=== PATIENT | female | born 1995 | race Caucasian/White ===

== ENCOUNTER 2024-06-22 14:33 | Outpatient (AMB) | payer MEDICAID, SELFPAY ==
[2024-06-22 14:57] VITALS: BP 105/60; PULSE 82; RESP 16; TEMP 36.3; O2SAT 96; BMI 40.5
--- NOTE | 2024-06-22 14:57 | AMB.OBINITIA ---
Vital Signs 06/22/24 14:57 Height 1.55 m Height Method Stated Weight 97.239 kg Weight Measurement Method Standing Scale BMI 40.5 BP 105/60 Blood Pressure Source Automatic Cuff Blood Pressure Location Left Upper Arm Position Sitting Respiration 16 Pulse 82 Pulse Source Monitor Temp 97.3 F Temp Source Oral Pulse Oximetry (%) 96 Oxygen Delivery Method Room Air Allergies/Home Meds Allergies & Medications Allergies No Known Allergies Allergy (Verified 07/21/24 09:13) Medication Reconciliation cephalexin 500 mg capsule 500 mg PO QID #28 caps 12/21/23 [Rx Confirmed 07/21/24] Intake Visit Data Collection New Patient or Established: Established Patient (seen at [facility] within 3 years) Reason for Visit:: - Transfer of care from [facility] - follow-up (34 weeks 1 day gestation) - So uncomfortable - Right-sided abdominal discomfort with activity Seen by Clinical Staff ONLY (RN/MA): No Light Cleaner Required: No Do You Feel Safe at Home: Yes Authorities Contacted: N/A PCP or OBGYN visit in last 3 months: No Hx Now: Yes Are you currently on any form of Control: No Last menstrual period: 11/15/23 Pain Present Currently: No Pain Scale Used: [employer]/Numerical Pain scale:: 0 Smoking Status Smoking Status: Former smoker Questionnaires Covid-19 Vaccine Questionnaire Has patient been vacinated for Covid-19 Have you been vacinated for Covid-19: No PHQ-9 PHQ-2 Over the last 2 weeks, how often have you been bothered by any of the following problems? 1. Little interest or pleasure in doing things: not at all 2. Feeling down, depressed, or hopeless: not at all Total score: 0 PHQ-9 3. Trouble falling or staying asleep, or sleeping too much: Not at all 4. Feeling tired or having little energy: Not at all 5. Poor appetite or overeating: Not at all 6. Feeling bad about yourself - or that you are a failure or have let yourself or your family down: Not at all 7. Trouble concentrating on things, such as reading the newspaper or watching television: Not at all 8. Moving or speaking so slowly that other people could have noticed? - Or the opposite - being so fidgety or restless that you have been moving around a lot more than usual: not at all 9. Thoughts that you would be better off or of hurting yourself in some way: Not at all Total score: 0 Source: Developed by Drs. Robert Urbano, Chapis Gant, Patrice Young and colleagues, with an educational katheryn from [employer]. Depression screen completed yes Social History Living Situation History Marital Status: Lives With: Family Housing: House Tobacco History Smoking Status: Former smoker Second Hand Smoke Exposure: Yes Alcohol History Alcohol Intake: Former Alcohol Intake Frequency: holidays/special occasions only Substance Use History Substance Use: THC 03/2017 Domestic Abuse History Do You Feel Safe at Home: Yes Past Medical History Past Medical History Have you ever been diagnosed with any of the following: Cardiology Problems Congestive Heart Failure: No Respiratory Problems Chronic Obstructive Pulmonary Disease (COPD): No Asthma: No Stomache/Intestinal Problems Hepatitis: No Colorectal Cancer: No Genital/Urinary Problems Renal Disease: No Prostate Cancer: No Reproductive Problems Breast Cancer: No Testicular Cancer: No Musculoskeletal Problems Bone Cancer: No Endocrine Problems Diabetes Mellitus Type 1: No Diabetes Mellitus Type 2: No Blood Problems Anemia: Yes Sickle Cell Disease: No Other Problems Hospitalization: Yes Down Syndrome: No Developmental Delay: No Shingles: No Falls: No Blood Transfusions: No Blood Transfusion Reaction: No Anesthesia Reactions: No Organ Transplant: No Chemotherapy: No Radiation Therapy: No Hyperbaric Therapy: No MRSA: No VRSA: No Vancomycin-Resistant Enterococci: No Human Immunodeficiency Virus (HIV): No Chicken Pox: No Measles: No Mumps: No Rubella (Spanish Measles): No Pertussis: No Clostridium Difficile: No Cervical Cancer: No Lung Cancer: No Ovarian Cancer: No History of Present Illness HPI Narrative - Lucia Osorio is a 28-year-old presenting for transfer of care at 34 weeks and 1 day gestation (based on TIAN of 08/07/2024). - Patient reports feeling so uncomfortable during . 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 - Confirms regular movement. - Reports adherence to vitamin regimen. No contractions/ LOF/VB, reports good FM No MAHER/VC/RUQ/Epig pain OB Initial Visit Menstrual History Menstrual reliability: approximate (month known) Flow: normal Menstrual regularity: regular Monthly: Yes Age at menarche: 11 On control pills at conception: No Date of positive home test: 12/20/23 OB History : 9 Para: 1 Hx # Pregnancies: 0 Hx Total # of Abortions (Spontaneous & Elective): 7 # of Living Children: 1 Delivery History 1st : Child's name: VINCENT date: 08/31/17 sex: male Gestational age at delivery (weeks): 42 Delivery type: vaginal History of depression before or after : No Infection History & Risk Evaluation History of STDs: chlamydia Genetic Screening & History Genetic Screening/Teratology Counseling - Includes patient, baby's father, or anyone in either family with: 1. Patient's age 35 years or older as of estimated date of delivery: No 2. Thalassemia (Slovenian, Spanish, Mediterranean, or Background); MCV less than 80: No 3. Neural Tube Defect (Meningomyelocele, Spina Bifida, or Anencephaly): No 4. Congenital Heart Defect: No 5. Down Syndrome: No 6. Dominic-Sachs (Ashkenazi Jehovah'S Witness, Cajun, Serbian Sri Lankan): No 7. Lamonte Disease (Ashkenazi Jehovah'S Witness): No 8. Familial Dysautonomia (Ashkenazi Jehovah'S Witness): No 9. Sickle Cell Disease or Trait (): No 10. Hemophilia or other blood disorders: No 11. Muscular Dystrophy: No 12. Cystic Fibrosis: No 13. Oxford's Chorea: No 14. Mental Retardation/Autism: No 15. Other inherited genetic or chromosomal disorder: No 16. Maternal Metabolic Disorder (EG,TYPE 1 Diabetes, PKU): No 17. Patient or baby's father had a child with defects not listed above: No 18. Recurrent loss or a stillbirth: No 19. Medications (including supplements, vitamins, herbs or otc drugs)/illicit/recreational drugs/alcohol since last menstrual period: No 20. Any other: No Infection History 1. Live with someone with TB or exposed to TB: No 3. Hepatitis B,C: No 4. History of STD: chlamydia Other (see comments) Source: [employer] OB Flowsheet OB Flowsheet Initial Weight: Not Recorded Date <del>?</del> EGA Weight Edema CTX Effacement BP Fundal ht Pres Dilation Effacement Station Visit Note Alb Glu FHR Mov 06/22/24 <del>?</del> 34w 1d 97.239 kg 105/60 Lucia Osorio, 28-year-old at 34w1d (TIAN 08/07/2024), presents for transfer of care. No CTX/LOF/VB. Reports good FM. No MAHER/VS, Epig/RUQ pain. Main concern: right-sided abdominal discomfort with activity, described as stretching sensation. Denies other complaints. On vitamins. FHR: 147 bpm (normal). Labs: Blood type A+, Ab screen neg, rubella non-immune. Chlamydia+ on 04/16/24, treated with azithromycin. Assessment & Plan: 34w1d IUP. Right-sided ligament pain with activity. Refer for [facility] at [facility] ([place]) within 1?2 weeks Follow-up in 1 week Review outside records/labs from [facility] For discomfort: recommend hydration, Tylenol, warm compress as needed Reviewed signs of labor and routine counseling 145 active 06/29/24 <del>?</del> 35w 1d 98.146 kg 101/66 No contractions/ LOF/VB, reports good FM No MAHER/VC/RUQ/Epig pain. Schedule follow-up appointment in one week. Perform group B strep screening at 36 weeks gestation via vaginal culture swab. Continue monitoring activity and heart rate. Prepare for potential antibiotic administration during labor if group B strep culture returns positive. 155 active 07/12/24 <del>?</del> 37w 0d 100.698 kg absent absent 105/67 36 cephalic No contractions. No leaking. No bleeding. Reports good movement. Fetus is active. Complains of pressure. Group B strep today. Reviewed labor precautions and kick counts. Return in a week OB check. Discussed weight gain. 156 active 07/21/24 <del>?</del> 38w 2d 100.414 kg 102/67 No CTX/LOF/VB. Reports good FM. No MAHER/VS, Epig/RUQ pain. Baby described as very active. No complaints. Prior delivery via induction at 42w. Currently considering spontaneous labor vs induction. Planning to stop work Friday. FHR: 138 bpm (normal). Assessment & Plan: at 38w. No complaints. Routine term care. Weekly visits until delivery Discuss induction vs expectant management at next visit Provide work note for maternity leave starting end of this week FMLA/disability form to reflect 6-week period, extendable to 6 months if needed Reinforce signs of labor: regular CTX, LOF, VB [employer] on rest, hydration, nutrition, and safe physical activity 155 active Results Objective Laboratory: Laboratory, Imaging, and Diagnostic Test Results - Blood group: A-positive - Antibody screen: Negative - Rubella: Non-immune - ACPR: Non-reactive - Hepatitis B: Negative - HIV: Negative - Gonorrhea: Negative - Chlamydia: Positive (04/16/2024) - One-hour glucose: Negative - Cystic fibrosis: Negative Assessment & Plan Diagnosis / Problem List (1) Encounter for care in third trimester of first : Status: Acute (2) Supervision of high risk , unspecified, third trimester: Status: Acute Plan Problem List - , single intrauterine - Chlamydia infection Assessment - Intrauterine at 34 weeks 1 day gestation (based on TIAN 08/07/2024) - with history of vaginal delivery - Blood type A positive, antibody screen negative - Rubella non-immune - Chlamydia positive on 04/16/2024, treated with azithromycin - Right-sided abdominal discomfort, likely due to uterine ligament stretching - heart rate 147 bpm, within normal limits Plan - Referral for high-level ultrasound in [place] with [facility] within 1-2 weeks - Follow-up appointment scheduled for next week - Clinician to review all labs and records from previous provider - For right-sided discomfort: advised to drink water, take Tylenol, or apply warm towel as needed Educated the patient on labor signs, including regular contractions, lower back pain, and changes in vaginal discharge. Advised avoiding heavy lifting and getting adequate rest. Instructed to contact the office immediately if any signs occur. Discussed the importance of a balanced diet rich in folic acid, iron, and calcium, and provided a list of recommended and to-avoid foods. Emphasized avoiding high-sugar foods to reduce gestational diabetes risk. Encouraged hydration and frequent, small meals for energy.. Office Procedures OB Clinic LOC & Office Proc's Nursing/Assessment Patient Status: Established Patient OB Clinic Nursing Assessment: Medication Reconciliation, Update PMH in EMR and Vital Signs OB Clinic Coordination of Care: Complex Care and Chronic Disease 1-5, Consent,records obtained, informed consent, Education Simp Pt/Fam, Lab and Imaging orders, Results/Orders obtained and Staff clarify orders Special Needs: Heart tones Established Patient Charge Established Patient Point Assignment: 135 Established Patient Point Charge: EP Level 4 (120-155)
== END 2024-06-22 15:04 | disposition home or self-care (01) ==
LOC: HODSOBC 14:33
PROVIDERS: PCP Family Medicine; Referring Provider Family Medicine; Supervising Provider Obstetrics & Gynecology; Visit Provider Obstetrics & Gynecology
DX: O09.93 Supervision of high risk pregnancy, unspecified, third trimester (principal); Z3A.34 34 weeks gestation of pregnancy
CPT/HCPCS: 99214; G0463

== ENCOUNTER 2024-06-29 13:03 | Outpatient (AMB) | payer MEDICAID, SELFPAY ==
[2024-06-29 13:11] VITALS: BP 101/66; PULSE 82; RESP 18; TEMP 36.2; O2SAT 99; BMI 40.8
--- NOTE | 2024-06-29 13:11 | OBCLNT_ITS ---
Vital Signs 06/29/24 13:11 Height 1.55 m Height Method Stated Weight 98.146 kg Weight Measurement Method Standing Scale BMI 40.8 BP 101/66 Blood Pressure Source Automatic Cuff Blood Pressure Location Left Upper Arm Position Sitting Respiration 18 Pulse 82 Pulse Source Monitor Temp 97.2 F Temp Source Oral Pulse Oximetry (%) 99 Oxygen Delivery Method Room Air Allergies/Home Meds Allergies & Medications Allergies No Known Allergies Allergy (Verified 06/29/24 13:12) Medication Reconciliation levofloxacin 500 mg tablet 500 mg PO Q24H #7 tabs 10/13/19 [Rx Confirmed 06/29/24] metronidazole 500 mg tablet 500 mg PO BID #14 tabs 10/13/19 [Rx Confirmed 06/29/24] diphenhydramine HCl 25 mg capsule (Benadryl) 25 mg PO Q8H PRN allergic symptoms #30 caps 05/01/23 [Rx Confirmed 06/29/24] cephalexin 500 mg capsule 500 mg PO QID #28 caps 12/21/23 [Rx Confirmed 06/29/24] Intake Visit Data Collection New Patient or Established: Established Patient (seen at [facility] within 3 years) 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 Seen by Clinical Staff ONLY (RN/MA): No Superintendent Drivers Required: No Do You Feel Safe at Home: Yes Authorities Contacted: N/A PCP or OBGYN visit in last 3 months: Yes Date of Last PCP or OBGYN visit: 06/22/24 Hx Now: Yes Are you currently on any form of Control: No Pain Present Currently: No Pain Scale Used: [employer]/Numerical Pain scale:: 0 Smoking Status Smoking Status: Former smoker Questionnaires Covid-19 Vaccine Questionnaire Has patient been vacinated for Covid-19 Have you been vacinated for Covid-19: Yes PHQ-9 PHQ-2 Over the last 2 weeks, how often have you been bothered by any of the following problems? 1. Little interest or pleasure in doing things: not at all 2. Feeling down, depressed, or hopeless: not at all Total score: 0 PHQ-9 3. Trouble falling or staying asleep, or sleeping too much: Not at all 4. Feeling tired or having little energy: Not at all 5. Poor appetite or overeating: Not at all 6. Feeling bad about yourself - or that you are a failure or have let yourself or your family down: Not at all 7. Trouble concentrating on things, such as reading the newspaper or watching television: Not at all 8. Moving or speaking so slowly that other people could have noticed? - Or the opposite - being so fidgety or restless that you have been moving around a lot more than usual: not at all 9. Thoughts that you would be better off or of hurting yourself in some way: Not at all Total score: 0 If you checked off any problems, how difficult have these problems made it for you to do your work, take care of things at home, or get along with other people?: not difficult at all Source: Developed by Drs. Robert Urbano, Chapis Gant, Patrice Young and colleagues, with an educational katheryn from [employer]). Depression screen completed yes Social History Living Situation History Marital Status: Lives With: Family Housing: House Tobacco History Smoking Status: Former smoker Second Hand Smoke Exposure: Yes Alcohol History Alcohol Intake: Former Alcohol Intake Frequency: holidays/special occasions only Substance Use History Substance Use: THC 03/2017 Domestic Abuse History Do You Feel Safe at Home: Yes Past Medical History Past Medical History Have you ever been diagnosed with any of the following: Cardiology Problems Congestive Heart Failure: No Respiratory Problems Chronic Obstructive Pulmonary Disease (COPD): No Asthma: No Stomache/Intestinal Problems Hepatitis: No Colorectal Cancer: No Genital/Urinary Problems Renal Disease: No Reproductive Problems Breast Cancer: No Musculoskeletal Problems Bone Cancer: No Endocrine Problems Diabetes Mellitus Type 1: No Diabetes Mellitus Type 2: No Blood Problems Anemia: Yes Sickle Cell Disease: No Other Problems Hospitalization: Yes Down Syndrome: No Developmental Delay: No Shingles: No Falls: No Blood Transfusions: No Blood Transfusion Reaction: No Anesthesia Reactions: No Organ Transplant: No Chemotherapy: No Radiation Therapy: No Hyperbaric Therapy: No MRSA: No VRSA: No Vancomycin-Resistant Enterococci: No Human Immunodeficiency Virus (HIV): No Chicken Pox: No Measles: No Mumps: No Rubella (Serbian Measles): No Pertussis: No Clostridium Difficile: No Cervical Cancer: No Lung Cancer: No Ovarian Cancer: No History of Present Illness HPI Nadia Lucia Osorio, a patient, presents for a routine check-up. She reports that the baby is active, which is noted as a positive sign indicating good oxygen and blood supply to the fetus. The patient denies experiencing any contractions at this time. Lucia appears to be in good overall health and spirits, stating she is good when asked how she is doing. She expresses surprise at still being , suggesting she may be nearing her due date. The patient does not report any specific complaints or concerns during this visit. Obstetric History - Current : - Gestational age: 35 weeks (based on mention of upcoming 36-week appointment) - movement: Active - heart rate: 135 bpm, noted as normal No contractions/ LOF/VB, reports good FM No MAHER/VC/RUQ/Epig pain Review of Systems Review of Systems Systems Reviewed: All systems reviewed, normal except as documented Visit TIAN Calculator Estimated Delivery Date Method Current WG Current Estimate 08/02/24 LMP (Certain) 36w 4d Initial Weight: Not Recorded Date -?-?-?-?-?-?-?-?-?-?-?-?- EGA Weight Edema CTX Effacement BP Fundal ht Pres Dilation Effacement Station V isit Note Alb Glu FHR Mov 06/29/24 -?-?-?-?-?-?-?-?-?-?-?-?- 35w 1d 98.146 kg 101/66 No c ontractions/ LOF/VB, reports good FM No MAHER/VC/RUQ/Epig pain. Schedule follow-up appointment in one we ek. Perform group B strep screening at 36 weeks gestation via vaginal culture swab. Continue monitoring activity and heart rate. Prepare for potential antibiotic administration during labor if group B strep culture returns positive. 155 active Assessment & Plan Diagnosis / Problem List (1) Supervision of high risk , unspecified, third trimester: Status: Acute Plan Problem List , single, intrauterine Assessment 36-week progressing normally. heart rate auscultated at 135 bpm, which is within normal range. Patient reports active movement, indicating adequate oxygenation and blood supply. No reported contractions. Routine Group B Streptococcus screening planned for next week at 36 weeks gestation. Plan Schedule follow-up appointment in one week. Perform group B strep screening at 36 weeks gestation via vaginal culture swab. Continue monitoring activity and heart rate. Prepare for potential antibiotic administration during labor if group B strep culture returns positive. Educated the patient on labor signs, including regular contractions, lower back pain, and changes in vaginal discharge. Advised avoiding heavy lifting and getting adequate rest. Instructed to contact the office immediately if any signs occur. Discussed the importance of a balanced diet rich in folic acid, iron, and calcium, and provided a list of recommended and to-avoid foods. Emphasized avoiding high-sugar foods to reduce gestational diabetes risk. Encouraged hydration and frequent, small meals for energy.. Office Procedures OB Clinic LOC & Office Proc's Nursing/Assessment Patient Status: Established Patient OB Clinic Nursing Assessment: BP Monitoring, Medication Reconciliation, Update PMH in EMR and Vital Signs OB Clinic Coordination of Care: Consent,records obtained, informed consent, Education Simp Pt/Fam, Lab and Imaging orders and Staff clarify orders Special Needs: Heart tones Established Patient Charge Established Patient Point Assignment: 120 Established Patient Point Charge: EP Level 4 (120-155)
== END 2024-06-29 13:26 | disposition home or self-care (01) ==
LOC: HODSOBC 13:03
PROVIDERS: PCP Family Medicine; Referring Provider Family Medicine; Supervising Provider Obstetrics & Gynecology; Visit Provider Obstetrics & Gynecology
DX: O09.93 Supervision of high risk pregnancy, unspecified, third trimester (principal); Z3A.35 35 weeks gestation of pregnancy; Z87.891 Personal history of nicotine dependence
CPT/HCPCS: 99214; G0463

== ENCOUNTER 2024-07-12 13:41 | Outpatient (AMB) | payer MEDICAID, SELFPAY ==
[2024-07-12 13:51] VITALS: BP 105/67; PULSE 85; RESP 14; TEMP 36.1; O2SAT 97; BMI 41.9
--- NOTE | 2024-07-12 13:51 | OBCLNT_ITS ---
Vital Signs 07/12/24 13:51 Height 1.55 m Height Method Stated Weight 100.698 kg Weight Measurement Method Standing Scale BMI 41.9 BP 105/67 Blood Pressure Source Automatic Cuff Blood Pressure Location Left Upper Arm Position Sitting Respiration 14 Pulse 85 Pulse Source Monitor Temp 96.9 F Temp Source Oral Pulse Oximetry (%) 97 Oxygen Delivery Method Room Air Allergies/Home Meds Allergies & Medications Allergies No Known Allergies Allergy (Verified 07/12/24 13:52) Medication Reconciliation cephalexin 500 mg capsule 500 mg PO QID #28 caps 12/21/23 [Rx Confirmed 06/29/24] Intake Visit Data Collection New Patient or Established: Established Patient (seen at [facility] within 3 years) Reason for Visit:: CARE Seen by Clinical Staff ONLY (RN/MA): No 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 1. Little interest or pleasure in doing things: not at all 2. Feeling down, depressed, or hopeless: not at all Total score: 0 PHQ-9 3. Trouble falling or staying asleep, or sleeping too much: Not at all 4. Feeling tired or having little energy: Not at all 5. Poor appetite or overeating: Not at all 6. Feeling bad about yourself - or that you are a failure or have let yourself or your family down: Not at all 7. Trouble concentrating on things, such as reading the newspaper or watching television: Not at all 8. Moving or speaking so slowly that other people could have noticed? - Or the opposite - being so fidgety or restless that you have been moving around a lot more than usual: not at all 9. Thoughts that you would be better off or of hurting yourself in some way: Not at all Total score: 0 Source: Developed by Drs. Robert Urbano, Chapis Gant, Patrice Young and colleagues, with an educational katheryn from [employer]. Depression screen completed yes Social History Living Situation History Lives With: Family Housing: House Tobacco History Smoking Status: Former smoker Second Hand Smoke Exposure: Yes Alcohol History Alcohol Intake: Former Alcohol Intake Frequency: holidays/special occasions only Substance Use History Substance Use: THC 03/2017 Domestic Abuse History Do You Feel Safe at Home: Yes Past Medical History Past Medical History Have you ever been diagnosed with any of the following: Neurological Problems Cerebrovascular Accident (CVA): No Transient Ischemic Attacks (TIA): No Dementia: No Alzheimer's Disease: No Parkinson's Disease: No Cardiology Problems Myocardial Infarction: No Cardiac Arrhythmia: No Atrial Fibrillation: No Angina: No Heart Murmur: No Coronary Artery Disease: No Atherosclerotic Heart Disease: No Congestive Heart Failure: No Respiratory Problems Chronic Obstructive Pulmonary Disease (COPD): No Asthma: No Cough: No Wheezing: No Chest Deformities: No Smoking: No Smoking Cessation Counseling: No Smoking Exposure: No Tobacco Use: No Clubbing: No Stomache/Intestinal Problems Liver Cancer: No Hepatitis: No Colorectal Cancer: No Genital/Urinary Problems Renal Disease: No Reproductive Problems Breast Cancer: No Musculoskeletal Problems Muscular Dystrophy: No Myasthenia Gravis: No Marfan's Syndrome: No Bone Cancer: No Head,Eye,Nose,Throat Problems Cataracts: No Glaucoma: No Blind: No Chronic Ear Infections: No Deafness: No Endocrine Problems Diabetes Mellitus Type 1: No Diabetes Mellitus Type 2: No Parathyroid Disease: No Systemic Lupus Erythematosus: No Blood Problems Anemia: Yes Sickle Cell Disease: No Other Problems Hospitalization: Yes Down Syndrome: No Developmental Delay: No Shingles: No Falls: No Blood Transfusions: No Blood Transfusion Reaction: No Anesthesia Reactions: No Organ Transplant: No Chemotherapy: No Radiation Therapy: No Hyperbaric Therapy: No MRSA: No VRSA: No Vancomycin-Resistant Enterococci: No Human Immunodeficiency Virus (HIV): No Chicken Pox: No Measles: No Mumps: No Rubella ([place] Measles): No Pertussis: No Clostridium Difficile: No Cervical Cancer: No Lung Cancer: No Ovarian Cancer: No Visit OB Visit Log OB Flowsheet Initial Weight: Not Recorded Date -?-?-?-?-?-?-?-?-?-?-?-?- EGA Weight Edema CTX Effacement BP Fundal ht Pres Dilation Effacement Station Visit Note Alb Glu FHR Mov 06/29/24 -?-?-?-?-?-?-?-?-?-?-?-?- 35w 1d 98.146 kg 101/66 No c ontractions/ LOF/VB, reports good FM No MAHER/VC/RUQ/Epig pain. Schedule follow-up appointment in one we ek. Perform group B strep screening at 36 weeks gestation via vaginal culture swab. Continue monitoring activity and heart rate. Prepare for potential antibiotic administration during labor if group B strep culture returns positive. 155 active 07/12/24 -?-?-?-?-?-?-?-?-?-?-?-?- 37w 0d 100.698 kg absent absent 105/67 36 cephalic No contractions. No leaking. No bleeding. Reports good movement. Fetus is active. Complains of pressure. Group B strep today. Reviewed labor precautions and kick counts. Return in a week OB check. Discussed weight gain. 156 active TIAN Calculator Estimated Delivery Date Method Current WG Current Estimate 08/02/24 LMP (Certain) 37w 0d Expected Delivery Route/Plan vaginal Assessment & Plan Diagnosis / Problem List (1) Encounter for care in third trimester of first : Status: Acute Plan GBS today. Discussed labor precautions and kick counts twice a day. Discussed weight gain. Avoid sugary foods. Walk 40 minutes a day. Increase fluids. OB check in a week Additional Plan Follow Up: 1 Week (obc) Office Procedures OB Clinic LOC & Office Proc's Nursing/Assessment Patient Status: Established Patient OB Clinic Nursing Assessment: Medication Reconciliation, Update PMH in EMR and Vital Signs OB Clinic Coordination of Care: Complex Care and Chronic Disease 1-5, Consent,records obtained, informed consent, Education Simp Pt/Fam and Staff clarify orders Special Needs: Heart tones Established Patient Charge Established Patient Point Assignment: 115 Established Patient Point Charge: EP Level 3 (80-115)
== END 2024-07-12 14:18 | disposition home or self-care (01) ==
LOC: HODSOBC 13:41
PROVIDERS: PCP Advanced Practice Midwife; Referring Provider Advanced Practice Midwife; Supervising Provider Advanced Practice Midwife; Visit Provider Advanced Practice Midwife
DX: Z34.03 Encounter for supervision of normal first pregnancy, third trimester (principal); Z3A.37 37 weeks gestation of pregnancy
CPT/HCPCS: 99213; G0463

== ENCOUNTER 2024-07-21 09:03 | Outpatient (AMB) | payer MEDICAID, SELFPAY ==
[2024-07-21 09:12] VITALS: BP 102/67; PULSE 71; RESP 14; TEMP 36.2; O2SAT 96; BMI 41.8
--- NOTE | 2024-07-21 09:12 | AMB.OBVISIT ---
Vital Signs 07/21/24 09:12 Height 1.55 m Height Method Stated Weight 100.414 kg Weight Measurement Method Standing Scale BMI 41.8 BP 102/67 Blood Pressure Source Automatic Cuff Blood Pressure Location Left Upper Arm Position Sitting Respiration 14 Pulse 71 Pulse Source Monitor Temp 97.1 F Temp Source Oral Pulse Oximetry (%) 96 Oxygen Delivery Method Room Air Allergies/Home Meds Allergies & Medications Allergies No Known Allergies Allergy (Verified 07/21/24 09:13) Medication Reconciliation cephalexin 500 mg capsule 500 mg PO QID #28 caps 12/21/23 [Rx Confirmed 07/21/24] Intake Visit Data Collection New Patient or Established: Established Patient (seen at [facility] within 3 years) Reason for Visit:: CARE Seen by Clinical Staff ONLY (RN/MA): No Digital Sales Planner Required: No Do You Feel Safe at Home: Yes Authorities Contacted: N/A PCP or OBGYN visit in last 3 months: Yes Hx Now: Yes Are you currently on any form of Control: No Pain Present Currently: No Pain Scale Used: [employer]/Numerical Pain scale:: 0 Smoking Status Smoking Status: Former smoker Questionnaires Covid-19 Vaccine Questionnaire Has patient been vacinated for Covid-19 Have you been vacinated for Covid-19: Yes PHQ-9 PHQ-2 Over the last 2 weeks, how often have you been bothered by any of the following problems? 1. Little interest or pleasure in doing things: not at all 2. Feeling down, depressed, or hopeless: not at all Total score: 0 PHQ-9 3. Trouble falling or staying asleep, or sleeping too much: Not at all 4. Feeling tired or having little energy: Not at all 5. Poor appetite or overeating: Not at all 6. Feeling bad about yourself - or that you are a failure or have let yourself or your family down: Not at all 7. Trouble concentrating on things, such as reading the newspaper or watching television: Not at all 8. Moving or speaking so slowly that other people could have noticed? - Or the opposite - being so fidgety or restless that you have been moving around a lot more than usual: not at all 9. Thoughts that you would be better off or of hurting yourself in some way: Not at all Total score: 0 Source: Developed by Drs. Robert Urbano, Chapis Gant, Patrice Young and colleagues, with an educational katheryn from [employer]. Depression screen completed yes Social History Living Situation History Lives With: Family Housing: House Tobacco History Smoking Status: Former smoker Second Hand Smoke Exposure: Yes Alcohol History Alcohol Intake: Former Alcohol Intake Frequency: holidays/special occasions only Substance Use History Substance Use: THC 03/2017 Domestic Abuse History Do You Feel Safe at Home: Yes Past Medical History Past Medical History Have you ever been diagnosed with any of the following: Neurological Problems Cerebrovascular Accident (CVA): No Transient Ischemic Attacks (TIA): No Dementia: No Alzheimer's Disease: No Parkinson's Disease: No Cardiology Problems Myocardial Infarction: No Cardiac Arrhythmia: No Atrial Fibrillation: No Angina: No Heart Murmur: No Coronary Artery Disease: No Atherosclerotic Heart Disease: No Congestive Heart Failure: No Respiratory Problems Chronic Obstructive Pulmonary Disease (COPD): No Asthma: No Cough: No Wheezing: No Chest Deformities: No Smoking: No Smoking Cessation Counseling: No Smoking Exposure: No Tobacco Use: No Clubbing: No Stomache/Intestinal Problems Liver Cancer: No Hepatitis: No Colorectal Cancer: No Genital/Urinary Problems Renal Disease: No Reproductive Problems Breast Cancer: No Musculoskeletal Problems Muscular Dystrophy: No Myasthenia Gravis: No Marfan's Syndrome: No Bone Cancer: No Head,Eye,Nose,Throat Problems Cataracts: No Glaucoma: No Blind: No Chronic Ear Infections: No Deafness: No Endocrine Problems Diabetes Mellitus Type 1: No Diabetes Mellitus Type 2: No Parathyroid Disease: No Systemic Lupus Erythematosus: No Blood Problems Anemia: Yes Sickle Cell Disease: No Other Problems Hospitalization: Yes Down Syndrome: No Developmental Delay: No Shingles: No Falls: No Blood Transfusions: No Blood Transfusion Reaction: No Anesthesia Reactions: No Organ Transplant: No Chemotherapy: No Radiation Therapy: No Hyperbaric Therapy: No MRSA: No VRSA: No Vancomycin-Resistant Enterococci: No Human Immunodeficiency Virus (HIV): No Chicken Pox: No Measles: No Mumps: No Rubella ([place] Measles): No Pertussis: No Clostridium Difficile: No Cervical Cancer: No Lung Cancer: No Ovarian Cancer: No History of Present Illness HPI Nadia Lucia Osorio, a patient, presents for a routine visit approximately 2 weeks before her due date. She reports no current contractions or problems. The patient states that the baby is very active, which she confirms when asked. She denies any leakage of fluids. Lucia mentions that she was induced with her first at 42 weeks. She has been given two potential due dates for her current : July 24 and August 07, with August 07 being determined as the more accurate date based on calculations. The patient is considering her options for delivery, including waiting for spontaneous labor or scheduling an induction. She expresses being comfortable with either option. The patient inquires about work-related matters, indicating her intention to finish work this week. She is planning to work until Friday before starting her maternity leave. Review of Systems General: Negative for contractions. Genitourinary: Negative for leakage. Other: Positive for active movement. Visit OB Visit Log OB Flowsheet Initial Weight: Not Recorded Date <del>?</del> EGA Weight Edema CTX Effacement BP Fundal ht Pres Dilation Effacement Station Visit Note Alb Glu FHR Mov 06/29/24 <del>?</del> 35w 1d 98.146 kg 101/66 No contractions/ LOF/VB, reports good FM No MAHER/VC/RUQ/Epig pain. Schedule follow-up appointment in one week. Perform group B strep screening at 36 weeks gestation via vaginal culture swab. Continue monitoring activity and heart rate. Prepare for potential antibiotic administration during labor if group B strep culture returns positive. 155 active 07/12/24 <del>?</del> 37w 0d 100.698 kg absent absent 105/67 36 cephalic No contractions. No leaking. No bleeding. Reports good movement. Fetus is active. Complains of pressure. Group B strep today. Reviewed labor precautions and kick counts. Return in a week OB check. Discussed weight gain. 156 active 07/21/24 <del>?</del> 38w 2d 100.414 kg 102/67 No CTX/LOF/VB. Reports good FM. No MAHER/VS, Epig/RUQ pain. Baby described as very active. No complaints. Prior delivery via induction at 42w. Currently considering spontaneous labor vs induction. Planning to stop work Friday. FHR: 138 bpm (normal). Assessment & Plan: at 38w. No complaints. Routine term care. 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 Patient reports no contractions, no leakage of fluid, and good movement. heart rate auscultated at 138 bpm, which is within normal range. Patient is approaching her due date of August 07 and is considering options for labor induction versus spontaneous labor onset. No reported complications or concerns at this time. Plan Patient is approaching her due date, estimated to be August 07. Discussed options for delivery, including waiting for spontaneous labor or induction after the due date. Patient to consider preferences and discuss decision at next appointment. Weekly appointments scheduled until delivery. Work note to be provided for maternity leave starting after this week, with initial disability period set for 6 weeks , with possibility of extension up to 6 months if needed. heart rate noted as normal at 138 bpm. Educated the patient on labor signs, including regular contractions, lower back pain, and changes in vaginal discharge. Advised avoiding heavy lifting and getting adequate rest. Instructed to contact the office immediately if any signs occur. Discussed the importance of a balanced diet rich in folic acid, iron, and calcium, and provided a list of recommended and to-avoid foods. Emphasized avoiding high-sugar foods to reduce gestational diabetes risk. Encouraged hydration and frequent, small meals for energy.. Office Procedures OB Clinic LOC & Office Proc's Nursing/Assessment Patient Status: Established Patient OB Clinic Nursing Assessment: Medication Reconciliation, Update PMH in EMR and Vital Signs OB Clinic Coordination of Care: Complex Care and Chronic Disease 1-5, Consent,records obtained, informed consent, Education Simp Pt/Fam, Results/Orders obtained and Staff clarify orders Special Needs: Heart tones Miscellaneous Interventions: Blood/Urine Collection Established Patient Charge Established Patient Point Assignment: 150 Established Patient Point Charge: EP Level 4 (120-155)
== END 2024-07-21 09:30 | disposition home or self-care (01) ==
LOC: HODSOBC 09:03
PROVIDERS: Supervising Provider Obstetrics & Gynecology; Visit Provider Obstetrics & Gynecology
DX: Z34.83 Encounter for supervision of other normal pregnancy, third trimester (principal); Z3A.38 38 weeks gestation of pregnancy; Z87.891 Personal history of nicotine dependence
CPT/HCPCS: 99214; G0463

== ENCOUNTER 2024-07-27 13:06 | Outpatient (AMB) | payer MEDICAID, SELFPAY ==
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
[2024-07-27 13:33] VITALS: BP 107/70; PULSE 84; RESP 18; TEMP 36.5; O2SAT 96; BMI 41.9
== END 2024-07-27 13:38 | disposition home or self-care (01) ==
LOC: HODSOBC 13:06
PROVIDERS: Supervising Provider Obstetrics & Gynecology; Visit Provider Obstetrics & Gynecology
DX: O09.93 Supervision of high risk pregnancy, unspecified, third trimester (principal); Z3A.39 39 weeks gestation of pregnancy; Z87.891 Personal history of nicotine dependence; Z78.9 Other specified health status
CPT/HCPCS: 99214; G0463

== ENCOUNTER 2024-08-03 13:44 | Outpatient (AMB) | payer MEDICAID, SELFPAY ==
[2024-08-03 13:52] VITALS: BP 106/69; PULSE 98; RESP 18; TEMP 36.3; O2SAT 98; BMI 42.3
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
== END 2024-08-03 14:32 | disposition home or self-care (01) ==
LOC: HODSOBC 13:44
PROVIDERS: Supervising Provider Advanced Practice Midwife; Visit Provider Advanced Practice Midwife
DX: O09.891 Supervision of other high risk pregnancies, first trimester (principal); Z3A.40 40 weeks gestation of pregnancy; O48.0 Post-term pregnancy
CPT/HCPCS: 81001; 99215; G0463

== ENCOUNTER 2024-08-10 15:00 | Inpatient (IN) | payer MEDICAID, SELFPAY ==
[2024-08-10] VITALS (10 sets, daily range): BP systolic 80–114; BP diastolic 43–65; PULSE 70–89; RESP 16–18; TEMP 36.7–36.9; BMI 43.1
[2024-08-10 16:09] LABS: Basophils % (Auto) 0 % (0-2.5); Eosinophils # (Auto) 0.1 Thou/mm3 (0.0-0.5); Eosinophils % (Auto) 1 % (0-10); Hematocrit 31.1 % (36.0-46.0); Hemoglobin 10.7 g/dL (12.0-16.0); Immature Granulocytes % (Auto) 1 % (0-0); Immature Granulocytes Auto 0.05 Thou/mm3 (0.00-0.00); Lymphocytes # (Auto) 2.5 Thou/mm3 (1.0-4.8); Lymphocytes % (Auto) 23 % (10-50); Mean Corpuscular HGB Conc 34.4 g/dl (31.0-37.0); Mean Corpuscular Hemoglobin 26.7 pg (25.0-35.0); Mean Corpuscular Volume 78 fL (80-100); Monocytes # (Auto) 0.6 Thou/mm3 (0.0-0.8); Monocytes % (Auto) 6 % (0-12); Neutrophils # (Auto) 7.7 Thou/mm3 (1.8-7.7); Neutrophils % (Auto) 70 % (37-80); Nucleated Red Blood Cell % 0 /100 WBC (0); Platelet Count 268 Thou/mm3 (140-440); RDW Standard Deviation 40.9 fL (36.4-46.3); Red Blood Count 4.01 Miln/mm3 (4.00-5.20)
[2024-08-10 16:43] LABS: Syphilis Nonreactive (Nonreactive)
--- NOTE | 2024-08-10 16:45 | XR_ITS ---
Examination: . Lesion TECHNIQUE: Limited transabdominal sonographic images pelvis Date and time: August 10, 2024 1545 hours INDICATIONS: Post dates, unknown presentation FINDINGS: A viable intrauterine gestation cephalic presentation spine maternal left Cardiac motion 138 bpm Estimated weight 3798.8 g Estimated age 39 weeks 1 day IMPRESSION: Viable intrauterine gestation cephalic presentation
[2024-08-10 16:49] LABS: Amphetamine/Metham Scrn,Ur OB Negative (Negative); Benzoylecgonine Screen, Ur OB Negative (Negative); Opiate Screen,Urine OB Negative (Negative); THC Screen,Urine OB Negative (Negative)
[2024-08-10] MEDS: DINOPROSTONE 10 MG VAG.SUPP VAGINAL (19:50)
[2024-08-11] VITALS (175 sets, daily range): BP systolic 89–136; BP diastolic 49–90; PULSE 47–96; RESP 16–20; TEMP 36.7–37.2; O2SAT 88–100
--- NOTE | 2024-08-11 08:01 | PD.LDPN ---
Documentation for date of: 08/11/24 OB Labor Progress Note Pain Control Pain control: tolerating well Pelvic Exam Dilation (cm): 2-3 Effacement (%): 50 station: -3 Amniotic membrane status: Intact Contractions Monitor mode: External Contraction frequency: 1-2-4 Contraction duration: 40 Contraction phase: Resting Contraction intensity: Mild Status status: Category l
--- NOTE | 2024-08-11 08:06 | PD.LDHP ---
Documentation for date of: 08/11/24 OB Labor/Induct. HPI History of Present Illness Chief complaint: induction : 9 Term pregnancies: 0 pregnancies: 0 Living children: 1 History of Abortions: Spontaneous and Elective: 7 History of sections: No History of : No Date of last menstrual period: 10/15/23 TIAN: 08/02/24 Gestational Age (weeks): 41 Gestational Age (days): 3 Gestational age based on last menstrual period: 43 Indication for induction: post dates History of present illness: 29-year-old 9 para 1 admit to labor and delivery for induction of labor. Patient's been followed at [facility] for care. Late care. Her first visit to previous provider was at 28 weeks. Patient is A+, antibody screen negative, RPR nonreactive, rubella immune, hepatitis B negative, hep C negative, HIV negative, GC was negative and chlamydia positive. No test of cure on the chart. There is also no results for a 1 hour Glucola on the chart. NIPT and carrier screens were negative. And patient had been scheduled for anatomy scan at [facility]. Results are not in the chart. Reports movement. No leaking or bleeding History of Present Dating criteria: LMP confirmed by 2nd trimester US Adequate Care: Yes Ultrasounds: normal mid trimester US Obstetrical complications: none Medical complications: none Labs Labs: Negative: RPR, Hepatitis B, Rubella Titre, HIV, Gonorrhea and Group Beta Strep and Unknown: Chlamydia, Herpes Type 1, Herpes Type 2 and Covid-19 Review of Systems Review of Systems Systems Reviewed: All systems reviewed, normal except as documented Past Medical History Surgical History SURGICAL: Negative Section Meds Home Medications and Allergies Home Medications ?Medication ?Instructions ?Recorded ?Confirmed ?Type ferrous sulfate 325 mg (65 mg mg 08/10/24 History iron) tablet (FeroSul) Allergies Allergy/AdvReac Type Severity Reaction Status Date / Time No Known Allergies Allergy Verified 08/10/24 15:20 OB Exam Physical Exam Vital signs: Temp Pulse Resp BP O2 Del Method 98.6 F 75 18 110/57 L Room Air 08/11/24 06:55 08/11/24 06:58 08/11/24 06:55 08/11/24 06:58 08/11/24 06:55 Narrative: Normal vital signs. Afebrile. Heart rate is regular. No wheezing no respiratory depression. Gravid abdomen. Gynecoid pelvis. Estimated weight 3700 g by ultrasound. And fetus was not vertex presentation. Exam on admission was long, 1-2,. Vertex. Medium. And -4. heart rate category 1 with accelerations and moderate variability and occasional contractions Routine Abdominal Exam Abdominal: Present soft Detailed Labor and Delivery Exam Dilation (cm): 1-2 Effacement (%): thick Cervix position: posterior station: -4 Consistency: medium Presentation: Vertex Cervical ripeness score: 3 Membranes: intact Baseline heart rate: 156 monitor accelerations: 15x15 monitor decelerations: None prison variability: Moderate (11-25) Contraction frequency (min): occ Contraction duration (sec): 30 Tachysystole: No Contraction intensity: Mild OB Results Labs 08/10/24 15:33 Labs: Short CBC 08/10/24 Range/Units 15:33 WBC 11.0 (3.6-11.0) Thou/mm3 Hgb 10.7 L (12.0-16.0) g/dL Hct 31.1 L (36.0-46.0) % Plt Count 268 (140-440) Thou/mm3 OB Assessment & Plan Assessment and Plan (1) Normal labor and delivery: Status: Acute Additional Plan Induction method: per misoprostol protocol (follow by cytotec) Plan: induction, anticipate NVD and consult MD moon
[2024-08-11] MEDS: MISOPROSTOL 50 mCg TABLET PO (09:47)
[2024-08-11] MEDS: RINGERS LACTATED 1000 ML 1,000 ML 100 ML IV ×5 (09:53→23:13)
[2024-08-11 10:50] LABS: Chlamydia trachomatis PCR Negative (Not Detect); Neisseria Gonorrhoeae DNA PCR Negative (Not Detect); Trichomonas Positive (Negative)
[2024-08-11] MEDS: fentaNYL CIT INJ 50 mCg/ML AMP 2ML 100 MCG IV ×2 (11:17→21:35)
--- NOTE | 2024-08-11 14:56 | PC.NURSE ---
08/11/24 1345: Pt. updated on negative status of chlamydia/gonorrhea, and + status of trichomoniasis, as well as plan of care with medications for treatment. Pt. has no further questions at this time.
[2024-08-11] MEDS: OXYTOCIN in NS 30 units 30 UNIT/500 ML BAG IV (16:48)
[2024-08-11] MEDS: RINGERS LACTATED 1000 ML 1,000 ML 125 ML IV (17:54)
--- NOTE | 2024-08-11 18:03 | PD.LDPN ---
Documentation for date of: 08/11/24 OB Labor Progress Note Pain Control Pain control: epidural Pelvic Exam Dilation (cm): 4 Effacement (%): 90 station: -2 Amniotic membrane status: Ruptured Contractions Monitor mode: Internal Contraction frequency: 2-3 Contraction duration: 40 Contraction phase: Resting Contraction intensity: Moderate Status status: Category ll Assessment and Plan Pitocin rate (mU/min): 1 Assessment: induction ongoing Plan OB labor note: other (stop pitocin, place internals, start amnioinfusion and intrauterine resuscitation measures. consult with OB. continue resuscitative measure, bolus, position changes and re evaluate) CNM Management MD Consulted (describe details below): Yes
--- NOTE | 2024-08-11 18:15 | ESPR_ITS ---
Documentation for date of: 08/11/24 OB Labor Progress Note Pelvic Exam Dilation (cm): 4 Effacement (%): 90 station: -2 Amniotic membrane status: Ruptured Contractions Monitor mode: Internal Contraction frequency: 2-3 Contraction phase: Resting Contraction intensity: Moderate Status status: Category ll Assessment and Plan Comments: Spoke with JEFF Edgar regarding FHRT. FHRT has excellent variability but recently had some late FHR decels. IV pitocin was stopped, patient repositioned to left side, O2 mask on, IUPC placed for amnioinfusion. With these measures late decels have greatly improved, but still subtle. I spoke with RN who confirmed [facility] was called to address patient's bp since she started 120's/60's and is now 90's/50's. I suspect low bp is etiology for subtle lates at this time. Will continue to closely monitor. If FHRT resolves to Cat I, safe to continue with labor process. Kelsea Burgos MD
[2024-08-11] MEDS: TERBUTALINE SULF INJ 1 MG/ML VIAL 0.25 MG SC (19:55)
[2024-08-11] MEDS: ONDANSETRON INJ 2 MG/ML INJ 2 ML 4 MG IV (19:56)
[2024-08-11] MEDS: metroNIDAZOLE 250 MG TABLET 500 MG PO (21:16)
[2024-08-12] VITALS (57 sets, daily range): BP systolic 81–139; BP diastolic 37–88; PULSE 57–142; RESP 14–19; TEMP 36.7–37.4; O2SAT 90–100
--- NOTE | 2024-08-12 01:55 | ESPR_ITS ---
Documentation for date of: 08/12/24 OB Labor Progress Note Pelvic Exam Dilation (cm): 7 Effacement (%): 80 station: 0 Amniotic membrane status: Ruptured Contractions Monitor mode: Internal Contraction frequency: 2-4 Contraction phase: Resting Contraction intensity: Moderate Status status: Category ll Assessment and Plan Comments: Decision for section Called to L&D urgently for FHR decel that nadired at 40bpm and that returned to baseline over 7 minutes with resuscitative measures. Within a few minutes of this, after my arrival, there was another FHR decel that also nadired at 40bpm and came up to baseline over a few minutes. Prior to this there was a pattern of variables that were much shallower at melody. Moderate varability maintained. She is 7cm dilated. I counseled patient regarding my recommendation for section for Cat II FHRT remote from delivery. She is amenable to proceeding. -Counseled/consented re: section. Discussed all r/b/a to include: bleeding (possible need for blood transfusion), infection (subcutaneous, deeper layers or uterine with possible need for prolonged admission or re-admission for IV antibiotics, I&D with wound packing, etc), injury to nearby structures such as bladder, bowel, ureters, blood vessels, nerves with possible need for re- operation, pain, injury to baby, hysterectomy, DVT/PE, . Answered all questions to patient and their support person's satisfaction. -IV abx ppx: ancef 3g of IV x1 and azithromycin 500mg IV x1 -Nursing and anesthesia team aware of plan for section. Will proceed to OR JUD when team arrives. Kelsea Burgos MD
[2024-08-12] MEDS: CITRIC ACID/SODIUM CITR 15 ML UDC (BICITRA) 30 ML PO (02:04)
[2024-08-12] MEDS: FAMOTIDINE INJ 10 MG/ML VIAL 2 ML 20 MG IV (02:04)
[2024-08-12] MEDS: ceFAZolin/D5W 2 GM IV 2 GM/100 ML BAG IV (02:04)
[2024-08-12] MEDS: AZITHROMYCIN INJ 500 MG in SODIUM CHLORIDE 0.9% 250 ML 250 ML 250 MG IV (02:22)
--- NOTE | 2024-08-12 04:01 | PD.GYNPROC ---
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 She progressed over time to 7cm but experienced 2 FHR decels down to melody 40bpm, so was recommended for Category II FHRT remote from delivery and she was amenable after counseling. Pre-Op diagnosis: [facility] at 41w4d Cat II FHRT remote from delivery ( intolerance to labor) Post-Op diagnosis: [facility] at 41w4d Cat II FHRT remote from delivery ( intolerance to labor) OP presentation Anesthesia type: Epidural Fluids: crystalloid Fluid amount (mL): 1,000 Urine output (mL): 150 Specimen: none (placenta and cord removed, not sent to path) Estimated blood loss (ml): 900 Findings: Female in OP presentation, apgars 9/9, 3680g, TOB 0248 on 08/12/24. Normal appearing uterus, fallopian tubes and ovaries (3cm physiologic-appearing fluid filled cyst of left ovary). Complications: none Narrative: After obtaining informed consent, the patient was taken to the operating room. Epidural anesthesia was already in place. Latif catheter was already in place. Bilateral sequential compression devices were placed. She was then prepped and draped in the normal sterile fashion in the dorsal supine position with left lateral tilt. A timeout was performed to confirm patient name, date of , procedure and indication. The team was in agreement. Spinal anesthesia was found to be adequate using an Allis clamp. Ancef 2g IV x1 and Azithromycin 500mg IV x1 were given for prophylaxis. A Pfannenstiel skin incision was then made with the scalpel and carried through to the underlying layer of fascia. The fascia was incised in the midine and the incision was extended laterally with blunt dissection. The superior and inferior aspects of the fascial incision were then dissected off of the underlying rectus muscles bluntly. The peritoneum was entered digitally and the rectus muscles were then in the midline. The peritoneal incision was then extended superiorly and inferiorly with good visualization of the bladder. An Mark retractor was placed. The lower uterine segment was scored in a transverse fashion with the scalpel. The uterus was then entered bluntly and the incision was extended with traction with clear amniotic fluid noted. The infant's head was elevated to the level of the incision. Fundal pressure was applied. The head was delivered atraumatically in the OP position. The anterior shoulder, posterior shoulder and corpus were delivered without difficulty. The nose and mouth were suctioned with bulb suction and cord was clamped x2 and cut. Infant was vigorous. The infant was handed off to the awaiting nursing team. Cord blood obtained for typing. The placenta was then removed with uterine massage and cord traction. The uterus was exteriorized and cleared of all clot and debris. The uterine incision was repaired with 0-vicryl suture in a running locking fashion taking great care to fully reapproximate the inferior extensions on both sides of the hysterotomy. A second layer of O-Monocryl was used to closed the hysterotomy incision in an imbricating fashion. The uterine incision was inspected and complete hemostasis was noted. A piece of surgicel snow was placed over the repaired hysterotomy. Good uterine tone was achieved early on and remained throughout the repair of hysterotomy. The posterior cul-de-sac was suctioned and the uterus returned to the abdomen. The gutters were cleared of all clot. Mark retractor was removed. Hysterotomy again observed to be hemostatic. The peritoneum was closed using a 3-0 vicryl suture in running fashion. The rectus muscles were inspected and noted to be hemostatic. The fascia was reapproximated with 0-Vicryl suture in a running fashion. The subcutaneous tissue was then irrigated copiously. Mauricio's fascia was repaired in 2 layers using 3-0 vicryl suture in a running fashion. At that point TALENT ACQUISITION CONSULTANT reapproximated the skin with 4-0 monocryl suture in running subcuticular fashion. The incision was cleaned with a wet lap and dried with a dry lap. Dvapossyw-jmidgukokgg-cnip bandage was applied overlying the incision and activated according to collection specialist instructions. Fundus was firm at the umbilicus. Sponge, lap and needle counts were correct x2. 800mcg cytotec placed MT to maintain good uterine tone along with routine post-surgical IV pitocin. The procedure was without complications and the patient tolerated the procedure well. She was taken to recover further on Labor and Delivery, in stable condition. Surgical staff Operation Date: 08/12/24 02:45 Case Staff FILTER PRESS TENDER HEAD: Km Oconnell RNribbon lapper tender: Teresa Flynn Diagnosis Discharge Diagnosis (1) Delivery by section: Status: Acute (2) intolerance to labor, delivered, current hospitalization: Status: Acute (3) 41 weeks gestation of : Status: Acute (4) Trichomonal vaginitis during : Status: Acute (5) Anemia affecting in third trimester: Status: Acute Problem List Completed Was Problem List Reviewed/Reconciled?: Yes (4) Trichomonal vaginitis during Qualifiers: Trimester: third trimester Qualified Code(s): O23.593 - Infection of other part of genital tract in , third trimester; A59.01 - Trichomonal vulvovaginitis
[2024-08-12] MEDS: MISOPROSTOL 200 mCg TABLET 800 MCG PR (04:25)
[2024-08-12] MEDS: HYDROcodone/APAP 5/325 TABLET 2 TAB PO ×2 (05:10→13:33)
[2024-08-12] MEDS: DOCUSATE SOD 100 MG CAPSULE PO (08:59)
[2024-08-12] MEDS: metroNIDAZOLE 250 MG TABLET 500 MG PO ×2 (08:59→21:46)
[2024-08-12] MEDS: OXYTOCIN in NS 20 units 20 UNIT/1,000 ML BAG 125 UNIT IV (10:54)
[2024-08-12] MEDS: KETOROLAC INJ 30 MG/ML VIAL IVP ×2 (11:12→18:01)
[2024-08-12 12:44] LABS: Basophils % (Auto) 0 % (0-2.5); Eosinophils # (Auto) 0.1 Thou/mm3 (0.0-0.5); Eosinophils % (Auto) 0 % (0-10); Hematocrit 27.7 % (36.0-46.0); Hemoglobin 9.3 g/dL (12.0-16.0); Immature Granulocytes % (Auto) 1 % (0-0); Immature Granulocytes Auto 0.29 Thou/mm3 (0.00-0.00); Lymphocytes # (Auto) 1.8 Thou/mm3 (1.0-4.8); Lymphocytes % (Auto) 9 % (10-50); Mean Corpuscular HGB Conc 33.6 g/dl (31.0-37.0); Mean Corpuscular Hemoglobin 26.7 pg (25.0-35.0); Mean Corpuscular Volume 80 fL (80-100); Monocytes % (Auto) 5 % (0-12); Neutrophils # (Auto) 18.1 Thou/mm3 (1.8-7.7); Neutrophils % (Auto) 85 % (37-80); Nucleated Red Blood Cell % 0 /100 WBC (0); Platelet Count 199 Thou/mm3 (140-440); RDW Standard Deviation 43.2 fL (36.4-46.3); Red Blood Count 3.48 Miln/mm3 (4.00-5.20); White Blood Count 21.3 Thou/mm3 (3.6-11.0)
--- NOTE | 2024-08-12 12:59 | ESPR_ITS ---
Subjective Subjective Interval history: Patient doing well overall. Working on pain control- just received toradol 1 hour ago and still 7/10 pain, requesting norco which she is due for. was very early this morning, so not yet ambulating and head catheter still in place draining clear yellow urine. Tolerating regular diet without nausea/vomiting. Not yet passing gas. No fevers/chills, no CP/SOB. Exam Vital Signs Temp Pulse Resp BP Pulse Ox O2 Del Method 98.5 F 78 16 95/60 96 Room Air 08/12/24 11:59 08/12/24 11:59 08/12/24 11:59 08/12/24 11:59 08/12/24 11:59 08/12/24 11:59 Narrative Exam General: well developed, well nourished, no acute distress, conversant Cardiac: normal heart rate Lungs: breathing without distress Abdomen: soft, post-gravid, appropriately tender to palpation, no rebound or guarding Extremities: trace edema BLE Objective Labs 08/12/24 12:24 Labs: Laboratory Results - last 24 hr 08/12/24 12:24 WBC 21.3 H D RBC 3.48 L Hgb 9.3 L Hct 27.7 L MCV 80 MCH 26.7 MCHC 33.6 RDW Std Deviation 43.2 Plt Count 199 D Neut % (Auto) 85 H Lymph % (Auto) 9 L Kimble % (Auto) 5 Eos % (Auto) 0 Baso % (Auto) 0 Neut # (Auto) 18.1 H Lymph # (Auto) 1.8 Kimble # (Auto) 1.0 H Eos # (Auto) 0.1 Baso # (Auto) 0.0 Immature Gran # (Auto) 0.29 H Absolute Nucleated RBC 0.00 Immature Gran % 1 H Nucleated RBC % 0 Assessment & Plan Problem List (1) Delivery by section: Status: Acute Assessment and plan: Lucia is a 29yo G9 [id number] s/p uncomplicated PLTCS for Cat II FHRT remote from delivery when undergoing IOL for late-term gestation at 41&4wk, doing well on POD 0. Vitals wnl, benign exam. Hemodynamically stable with no evidence of infection. Appropriate change in H/H from 10.7 to 9.3. Plan: -Continue routine /post-op care -Head removal this afternoon with 6hr due to void -Regular diet -Toradol 30mg IV Q6hr scheduled for 4 total doses, then change to motrin 800mg PO Q8hr with norco 5/325mg PO Q6hr prn pain -Encourage ambulation and use of IS (2) intolerance to labor, delivered, current hospitalization: Status: Acute (3) 41 weeks gestation of : Status: Acute (4) Trichomonal vaginitis during : Status: Acute (5) Anemia affecting in third trimester: Status: Acute Time Spent With Patient Time: Total time spent is greater than 50% in coordination of care (as documented) at patient's floor/unit and/or counseling patient:
[2024-08-12] MEDS: HYDROcodone/APAP 5/325 TABLET 1 TAB PO (21:46)
[2024-08-12] MEDS: SIMETHICONE 80 MG CHEW PO (21:46)
[2024-08-13] MEDS: RINGERS LACTATED 1000 ML 500 ML 999 ML IV (00:16)
[2024-08-13] MEDS: KETOROLAC INJ 30 MG/ML VIAL IVP (00:17)
[2024-08-13 00:32] VITALS: BP 105/68; PULSE 74; RESP 20; TEMP 36.8; O2SAT 97
[2024-08-13 04:58] VITALS: BP 98/64; PULSE 75; RESP 16; TEMP 36.4; O2SAT 96
[2024-08-13 05:28] LABS: Basophils # (Auto) 0.1 Thou/mm3 (0.0-0.2); Basophils % (Auto) 0 % (0-2.5); Eosinophils # (Auto) 0.1 Thou/mm3 (0.0-0.5); Eosinophils % (Auto) 1 % (0-10); Hematocrit 24.8 % (36.0-46.0); Immature Granulocytes % (Auto) 1 % (0-0); Immature Granulocytes Auto 0.14 Thou/mm3 (0.00-0.00); Lymphocytes # (Auto) 3.4 Thou/mm3 (1.0-4.8); Lymphocytes % (Auto) 21 % (10-50); Mean Corpuscular HGB Conc 33.5 g/dl (31.0-37.0); Mean Corpuscular Hemoglobin 26.4 pg (25.0-35.0); Mean Corpuscular Volume 79 fL (80-100); Monocytes % (Auto) 6 % (0-12); Neutrophils # (Auto) 11.4 Thou/mm3 (1.8-7.7); Neutrophils % (Auto) 71 % (37-80); Nucleated Red Blood Cell % 0 /100 WBC (0); Platelet Count 194 Thou/mm3 (140-440); RDW Standard Deviation 43.5 fL (36.4-46.3); Red Blood Count 3.14 Miln/mm3 (4.00-5.20)
[2024-08-13 05:34] LABS: Hemoglobin 8.3 g/dL (12.0-16.0)
[2024-08-13] MEDS: IBUPROFEN TAB 400 MG TABLET 800 MG PO ×3 (06:22→23:40)
[2024-08-13 08:00] VITALS: BP 96/63; PULSE 72; RESP 14; TEMP 36.8; O2SAT 98
--- NOTE | 2024-08-13 08:49 | PC.CC ---
Patient is a 29 year-old female who presents to the hospital todelivr her baby girl. JAZZW Edith received a consult for late to care at 28 weeks. ASW Edith made face to face contact with the mother introduced self, role, and reason for visit. Patient appeared alert and oriented to self, location, and situation. Patient was pleasant and engaged in assessment. Patient appears stated age. Patient made good eye contact. Patient?s behavior appeared ordinary. Patient?s mood appears ordinary. No signs of delusions or hallucinations. Patient reports she was late to care as it was difficult find an OB in the area. Patient stated, The doctors were full and no one in the area was accepting new patients. Patient reports the father of the baby, Ramesh James is involved and he is her support system. Patient reports she receives WIC and SNAP. Patient denied past CWS and domestic violence. Patient reports she plans to formula feed and breast feed her new born. Patient reports she has all supplies she needs for her new born. SW provided psychoeducation regarding baby blues and Post- Depression, as well as counseling groups [facility]. SW provided community resources: Warm Line and Crisis Line.
[2024-08-13] MEDS: FERROUS SULF 325 MG TABLET PO (09:54)
[2024-08-13] MEDS: DOCUSATE SOD 100 MG CAPSULE PO (09:54)
[2024-08-13] MEDS: metroNIDAZOLE 250 MG TABLET 500 MG PO ×2 (09:54→20:55)
--- NOTE | 2024-08-13 11:21 | ESPR_ITS ---
Subjective Subjective Interval history: Patient doing well overall. Pain is fairly well controlled- RN reports patient hasn't been requesting the norco, but she is receiving the motrin scheduled. She is ambulating no lightheadedness/dizziness. Voiding spontaneously now (She had difficulty fully voiding yesterday after head removal, only voided 100ml for due to void and later bladder scan was done showing 350ml in the bladder. She received 500ml IVF bolus and after that was able to void fully). Tolerating regular diet without nausea/vomiting. Passing gas. No fevers/chills, no CP/SOB. Exam Vital Signs Temp Pulse Resp BP Pulse Ox O2 Del Method 98.2 F 72 14 96/63 98 Room Air 08/13/24 08:00 08/13/24 08:00 08/13/24 08:00 08/13/24 08:00 08/13/24 08:00 08/13/24 08:00 Narrative Exam General: well developed, well nourished, no acute distress, conversant Cardiac: normal heart rate Lungs: breathing without distress Abdomen: soft, post-gravid, non-tender, no rebound or guarding, pfannenstiel incision covered by dry/clean/intact prineo bandage. Incision well reapproximated. No erythema, drainage or induration. Fundus firm at u-2cm. Extremities: no pain with palpation of calves, 1+ edema of BLE Objective Labs 08/13/24 04:45 Labs: Laboratory Results - last 24 hr 08/12/24 08/13/24 12:24 04:45 WBC 21.3 H D 16.0 H D RBC 3.48 L 3.14 L Hgb 9.3 L 8.3 L Hct 27.7 L 24.8 L MCV 80 79 L MCH 26.7 26.4 MCHC 33.6 33.5 RDW Std Deviation 43.2 43.5 Plt Count 199 D 194 Neut % (Auto) 85 H 71 Lymph % (Auto) 9 L 21 Chambers % (Auto) 5 6 Eos % (Auto) 0 1 Baso % (Auto) 0 0 Neut # (Auto) 18.1 H 11.4 H Lymph # (Auto) 1.8 3.4 Chambers # (Auto) 1.0 H 1.0 H Eos # (Auto) 0.1 0.1 Baso # (Auto) 0.0 0.1 Immature Gran # (Auto) 0.29 H 0.14 H Absolute Nucleated RBC 0.00 0.00 Immature Gran % 1 H 1 H Nucleated RBC % 0 0 Assessment & Plan Problem List (1) Delivery by section: Status: Acute Assessment and plan: Lucia is a 29yo G9 [id number] s/p uncomplicated PLTCS for Cat II FHRT remote from delivery when undergoing IOL for late-term gestation at 41&4wk, doing well on POD 1. Vitals wnl, benign exam. Hemodynamically stable with no evidence of infection. Appropriate change in H/H from 10.7 to 9.3 to 8.3. Plan: -Continue routine /post-op care -Regular diet -motrin 800mg PO Q8hr, norco 5/325mg PO Q6hr prn pain -Flagyl 500mg PO BID for trichomonas -Encourage ambulation and use of IS -Anticipate discharge home tomorrow if meeting all milestones (2) intolerance to labor, delivered, current hospitalization: Status: Acute (3) 41 weeks gestation of : Status: Acute (4) Trichomonal vaginitis during : Status: Acute (5) anemia: Status: Acute (6) Obesity affecting : Status: Acute Time Spent With Patient Time: Total time spent is greater than 50% in coordination of care (as documented) at patient's floor/unit and/or counseling patient:
[2024-08-13 12:00] VITALS: BP 111/68; PULSE 76; RESP 19; TEMP 36.6; O2SAT 98
[2024-08-13] MEDS: HYDROcodone/APAP 5/325 TABLET 2 TAB PO (12:35)
[2024-08-13] MEDS: HYDROcodone/APAP 5/325 TABLET 1 TAB PO (19:43)
[2024-08-13 20:00] VITALS: BP 106/64; PULSE 81; RESP 19; TEMP 36.7; O2SAT 98
[2024-08-14 04:00] VITALS: BP 93/62; PULSE 74; RESP 16; TEMP 36.5; O2SAT 96
[2024-08-14] MEDS: IBUPROFEN TAB 400 MG TABLET 800 MG PO (06:22)
[2024-08-14 08:00] VITALS: BP 95/61; PULSE 78; RESP 16; TEMP 36.6; O2SAT 96
[2024-08-14] MEDS: hydroCHLOROthiazide 12.5 MG CAPSULE 25 MG PO (08:00)
--- NOTE | 2024-08-14 08:05 | ESPR_ITS ---
RE: RYANN RODRIGUEZ : 1995 DATE OF SERVICE: 08/14/2024 S: Postop day #2, the patient denies any problem or complaints. She is voiding. She is ambulating. She is tolerating regular diet. She is passing flatus. She denies any excessive vaginal bleeding. She denies any dizziness or lightheadedness. She denies any chest pain, palpitations, shortness of breath, or lower extremity pain. Has lower extrermity swelling both ankles which is uncomfortable. O: Vital Signs: Blood pressure 93/62, heart rate 74, respirations 16, temperature 97.7, pulse oximetry is 96% on room air. Lungs: Clear to auscultation bilaterally. Heart: Regular rate and rhythm. Abdomen: Incision clean and intact. Fundus is firm. Extremities: Nontender. Bilateral ankle edema 2+. LABORATORY DATA: Hemoglobin pre-delivery is 10.7, post-delivery is 8.3. ASSESSMENT: Postop day #2 status post delivery. Anemia, but hemodynamically stable. Trichomonas vaginitis. Ankle Edema. P: Discharge home with supplemental iron and metronidazole for vaginitis. Follow up in the office in 1 week. Discharge instructions given. HCTZ po daily until ankle edema resolves. DT: 07:23:10 TT: 07:55:00 Ref: [id number] - TID: [id number] MTDD
[2024-08-14] MEDS: MEASLES, MUMPS & RUBELLA VACC 0.5 ML VIAL SCi (08:35)
[2024-08-14] MEDS: DOCUSATE SOD 100 MG CAPSULE PO (08:36)
[2024-08-14] MEDS: FERROUS SULF 325 MG TABLET PO (08:36)
[2024-08-14] MEDS: ACETAMINOPHEN 325 MG TABLET 650 MG PO (08:36)
[2024-08-14 08:44] VITALS: BP 102/65; PULSE 76; O2SAT 96
[2024-08-14] MEDS: metroNIDAZOLE 250 MG TABLET 500 MG PO (09:32)
--- NOTE | 2024-08-14 10:32 | PD.LDDS ---
DS: Providers Provider Date of admission: 08/10/24 15:00 Primary care physician: Physician No Primary/Family Admitting Provider: Kelsea Burgos MD Attending Provider on Admission: Sergio Aguirre MD Consults: 08/12/24 03:53 Referral Routine Comment: Attending Provider on DC: Sergio Aguirre MD Discharging Provider: Sergio Aguirre MD DS: Diagnosis Problem List Completed Was Problem List Reviewed/Reconciled?: Yes Summary/Hosp Course Brief History: 29-year-old 9 para 1 admit to labor and delivery for induction of labor. Patient's been followed at [facility] for care. Late care. Her first visit to previous provider was at 28 weeks. Patient is A+, antibody screen negative, RPR nonreactive, rubella immune, hepatitis B negative, hep C negative, HIV negative, GC was negative and chlamydia positive. No test of cure on the chart. There is also no results for a 1 hour Glucola on the chart. NIPT and carrier screens were negative. And patient had been scheduled for anatomy scan at [facility]. Results are not in the chart. Reports movement. No leaking or bleeding Peripartum Data Delivery Method: Low Transverse Episiotomy Description: None Procedures: Procedures Operation Date: 08/12/24 02:45 Actual Procedure Side Surgeon p in OB Bilateral Kelsea Burgos MD Time Spent with Patient Time attestation: Total time spent providing and/or coordinating discharge services: Exam Vital Signs Temp Pulse Resp BP Pulse Ox O2 Del Method 98 F 76 16 102/65 96 Room Air 08/14/24 08:00 08/14/24 08:44 08/14/24 08:00 08/14/24 08:44 08/14/24 08:44 08/14/24 08:44 Discharge Plan Plan Patient Disposition: HOME (Self Care) Patient condition on transfer: Stable Prescriptions/Referrals Prescriptions/Med Rec: New hydrocodone-acetaminophen 5-325 mg Tablet 1 tab PO Q6H MDD 4 tablets PRN (Reason: Patient rated pain 7 to 8) 10 Days Qty: 20 0RF ferrous sulfate 325 mg (65 mg iron) Tablet,Delayed Release (Dr/Ec) 325 mg PO DAILY 30 Days Qty: 30 0RF ibuprofen 800 mg tablet 800 mg PO Q8HR PRN (Reason: Abdominal Pain) 10 Days Qty: 30 0RF polyethylene glycol 3350 17 gram powder in packet 17 g PO QDAY Qty: 14 0RF metronidazole 500 mg tablet 500 mg PO BID 5 Days Qty: 10 0RF hydrochlorothiazide 25 mg tablet 25 mg PO QDAY PRN (Reason: lower leg swelling) Qty: 7 0RF Discontinued ferrous sulfate [FeroSul] 325 mg (65 mg iron) tablet Patient Comments: TAKE ONE TABLET BY MOUTH EVERY DAY VITAMIN WITH ORANGE JUICE Referrals: No Primary/Family,Physician [Primary Care Provider] - Patient/Caregiver Discharge Instructions Discharge Activity: activity as tolerated and other Other Discharge Activity Instructions:: follow up with your obgyn or cnm in 1 week for incision check. call office for appointment. vaginal rest and no heavy lifting more than 10 pounds for 6 weeks[address] no [address] while taking narcotic. keep incision clean and dry. do not submerge. Other Discharge Diet Instructions: regular diet Education Materials: Understanding Blues, Breast Care After , C Section Dc Print Language: Georgian Activity Restrictions/Additional Instructions: follow up with your obgyn or cnm in 1 week for incision check. call office for appointment. Stand Alone Forms: Jackie Award Info., Patient Portal Info Letter Discharge Order Discharge Orders: Discharge (Routine); Ordered 08/14/24 Ordered By: Sergio Aguirre Planned Discharge Date 08/14/24
== END 2024-08-14 13:38 | disposition home or self-care (01) | DRG 540 ==
LOC: S4SX 08-12 02:38 → S4NX 08-12 03:09
PROVIDERS: Advanced Practice Midwife; Admitting Provider Obstetrics & Gynecology; Visit Provider Specialist
PROC: 4A1HXCZ Monitoring of Products of Conception, Cardiac Rate, External Approach (ICD-10-PCS; CPT 59514; principal; 2024-08-12 02:30)
DX: O48.0 Post-term pregnancy (principal); Z3A.41 41 weeks gestation of pregnancy; Z37.0 Single live birth; O34.83 Maternal care for other abnormalities of pelvic organs, third trimester; N83.202 Unspecified ovarian cyst, left side; O76 Abnormality in fetal heart rate and rhythm complicating labor and delivery; O99.02 Anemia complicating childbirth; O99.214 Obesity complicating childbirth; O98.32 Other infections with a predominantly sexual mode of transmission complicating childbirth; A59.01 Trichomonal vulvovaginitis; O12.04 Gestational edema, complicating childbirth
CPT/HCPCS: 36415; 59409; 76815; 80307; 85025; 86780; 86850; 86900; 86901; 87491; 87591; 87661; 90707; 94762; A4649; J0456; J0689; J1100; J1885; J2250; J2371; J2405; J2590; J2704; J2795; J3010; J3105; J3490; J7050; J7120; S0191; A9270

== ENCOUNTER 2024-09-28 14:31 | Outpatient (AMB) | payer MEDICAID, SELFPAY ==
[2024-09-28 14:43] VITALS: BP 103/70; PULSE 72; RESP 17; TEMP 36.2; O2SAT 96
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
== END 2024-09-28 15:19 | disposition home or self-care (01) ==
LOC: HODSOBC 14:31
PROVIDERS: Supervising Provider Obstetrics & Gynecology; Visit Provider Obstetrics & Gynecology
DX: Z39.2 Encounter for routine postpartum follow-up (principal); Z87.891 Personal history of nicotine dependence; O99.215 Obesity complicating the puerperium; O90.81 Anemia of the puerperium